=== PATIENT | male | born 1985 | race American Indian/Alaskan Native ===

== ENCOUNTER 2018-05-24 01:03 | Emergency (ER) | payer OTHER ==
[2018-05-24] MEDS ORDERED: TYLENOL PO ONE (01:35)
[2018-05-24] MEDS ORDERED: TYLENOL ONE (01:40)
--- NOTE | 2018-05-24 07:59 | Emergency Department Report ---
ED Back Pain/Injury HPI - General Chief Complaint: Back Pain/Injury Stated Complaint: BACK PAIN Time Seen by Provider: 05/24/18 07:52 Source: patient Limitations: No Limitations - History of Present Illness Initial Comments: Patient reported that he has back pain off and on 3 days. He states that he think he twisted his back while he was trying to pick something up. Denies any nausea or vomiting. Denies any urinary burning, frequency or urgency. Denies any fever or chills. Pain is 4/10 and aching. Denies any loss of bowel or bladder function. Denies any numbness or tingling to extremities. He said in 2013 he was told that he had a cyst on his kidney but patient is not heard and flank he is oriented in and is lower back at paraspinal area. Patient did not follow-up as recommended. Pain is worse with movement and better with rest. He denies taking any medication prior to coming to the emergency room MD Complaint: back pain, back injury Onset/Timin -: days(s) Similar Symptoms Previously: No Place: street Radiation: none Severity: mild Severity scale (0 -10): 4 Quality: aching Consistency: intermittent Improves With: other (rest) Worsens With: movement Context: turning/twisting Associated Symptoms: denies: confusion, weakness, chest pain, numbness, difficulty walking, cough, difficulty urinating, diaphoresis, incontinence, fever/chills, constipation, headaches, abdominal pain, loss of appetite, malaise, nausea/vomiting, rash, seizure, shortness of breath, syncope Treatments Prior to Arrival: other (none) - Related Data Previous Rx's Medication Instructions Recorded Last Taken Type Sulfamethoxazole/Trimethoprim 1 each PO Q12H #30 tablet 06/24/13 Unknown Rx [Bactrim DS TAB] Cyclobenzaprine [Flexeril 10 MG 10 mg PO Q8H PRN #12 tablet 05/24/18 Unknown Rx TAB] traMADol [Ultram 50 MG tab] 50 mg PO Q6HR PRN #12 tablet 05/24/18 Unknown Rx Allergies Allergy/AdvReac Type Severity Reaction Status Date / Time No Known Allergies Allergy Unverified 05/13/13 10:37 ED Review of Systems ROS: Stated complaint: BACK PAIN Other details as noted in HPI Constitutional: denies: chills, fever ENT: denies: throat pain, congestion Respiratory: denies: cough, shortness of breath, wheezing Cardiovascular: denies: chest pain, palpitations, edema, syncope Gastrointestinal: denies: abdominal pain, nausea, vomiting, constipation, hematemesis Genitourinary: denies: urgency, dysuria, frequency, hematuria, discharge, testicular pain, testicular mass Musculoskeletal: back pain. denies: joint swelling, arthralgia, myalgia Skin: denies: rash Neurological: denies: headache, weakness, numbness, paresthesias, abnormal gait, vertigo ED Past Medical Hx - Past Medical History Previous Medical History?: Yes Hx Kidney Stones: Yes ("cyst on kidney") - Surgical History Past Surgical History?: No - Family History Family history: no significant - Social History Smoking Status: Current Every Day Smoker Substance Use Type: None - Medications Home Medications: Home Medications Medication Instructions Recorded Confirmed Last Taken Type Sulfamethoxazole/Trimethoprim 1 each PO Q12H #30 tablet 06/24/13 Unknown Rx [Bactrim DS TAB] Cyclobenzaprine [Flexeril 10 MG 10 mg PO Q8H PRN #12 tablet 05/24/18 Unknown Rx TAB] traMADol [Ultram 50 MG tab] 50 mg PO Q6HR PRN #12 tablet 05/24/18 Unknown Rx ED Physical Exam - General Limitations: No Limitations General appearance: alert, in no apparent distress - Head Head exam: Present: atraumatic, normocephalic - Eye Eye exam: Present: normal appearance, PERRL, EOMI Pupils: Present: normal accommodation - ENT ENT exam: Present: normal exam, normal orophraynx, mucous membranes moist, TM's normal bilaterally, normal external ear exam - Neck Neck exam: Present: normal inspection, full ROM, other (no C-spine tenderness). Absent: tenderness, lymphadenopathy - Respiratory Respiratory exam: Present: normal lung sounds bilaterally. Absent: respiratory distress, chest wall tenderness - Cardiovascular Cardiovascular Exam: Present: regular rate, normal rhythm, normal heart sounds - GI/Abdominal GI/Abdominal exam: Present: soft, normal bowel sounds. Absent: distended, tenderness, guarding, rigid, organomegaly, mass ED Course Vital Signs 05/24/18 05/24/18 01:34 01:40 Temperature 97.9 F Pulse Rate 64 Respiratory 18 18 Rate Blood Pressure 123/73 O2 Sat by Pulse 97 Oximetry - Reevaluation(s) Reevaluation #1: 05/24/18 08:20 Review of chart shows the patient has a history of nephrocalcinosis which was found on CT scan of the abdomen and pelvis and April 2013. He had previous scan in 2011 which showed that there were no change. Patient and to receive Toradol and Decadron and urinalysis sent. I spoke to him regarding plans that he voiced understanding. He is stable presently in no acute distress 05/24/18 08:21 Reevaluation #2: 05/24/18 09:15 Patient tolerated fluid well in the emergency room and pain is better. ED Medical Decision Making - Lab Data Lab Results 05/24/18 Range/Units 08:29 Urine Color Yellow (Yellow) Urine Turbidity Clear (Clear) Urine pH 5.0 (5.0-7.0) Ur Specific [place] 1.034 H (1.003-1.030) Urine Protein 30 mg/dl (Negative) mg/dL Urine Glucose (UA) Neg (Negative) mg/dL Urine Ketones 20 (Negative) mg/dL Urine Blood Neg (Negative) Urine Nitrite Neg (Negative) Urine Bilirubin Neg (Negative) Urine Urobilinogen 2.0 (<2.0) mg/dL Ur Leukocyte Esterase Neg (Negative) Urine WBC (Auto) 5.0 (0.0-6.0) /HPF Urine RBC (Auto) 3.0 (0.0-6.0) /HPF U Epithel Cells (Auto) 1.0 (0-13.0) /HPF Urine Mucus 3+ /HPF - Medical Decision Making This is a 33-year-old male here for bilateral lower back pain that he has had before and said that he ranges his back. Patient has a history of renal calcinosis and urinalysis was then which shows dehydration otherwise stable. I discussed this with patient and I told him that he will need to follow-up with professor of marketing for further evaluation. He voiced understanding. Patient has no blood in his urine. He was given premedication emergency room and he said he feels better and discharged home in stable condition with prescription for Flexeril and Ultram. Report reviewed and CT scan of the abdomen and pelvis from 2013 and 2011 shows renal calcinosis without any changes Critical care attestation.: If time is entered above; I have spent that time in minutes in the direct care of this critically ill patient, excluding procedure time. ED Disposition Clinical Impression: Acute exacerbation of chronic low back pain, Renal calcinosis, Mild dehydration Disposition: DC-01 TO HOME OR SELFCARE Is pt being admited?: No Does the pt Need Aspirin: No Condition: Stable Instructions: Back Pain (ED), Dehydration (ED) Additional Instructions: Please follow up in the pathologist as instructed regarding and calcium deposits any kidney which is diagnosed in 2011 and 2013. Follow-up in 2 days Urinalysis is stable except you have mild dehydration and he needs to increase your fluid intake to at least 2-3 L of fluid daily. Take Flexeril and Ultram for back pain please do not drive or operate heavy machinery while taking this medication as it causes drowsiness C referral to primary care physician. Prescriptions: Cyclobenzaprine [Flexeril 10 MG TAB] 10 mg PO Q8H PRN #12 tablet PRN Reason: Muscle Spasm traMADol [Ultram 50 MG tab] 50 mg PO Q6HR PRN #12 tablet PRN Reason: Pain Referrals: LOWELL MIMS MD [Staff Physician] - 2-3 Days [facility] [Outside] - 2-3 Days Forms: Work/School Release Form(ED)
[2018-05-24] MEDS ORDERED: DECADRON IM STA (08:00)
[2018-05-24] MEDS ORDERED: TORADOL IM ONE (08:00)
[2018-05-24 08:48] LABS: Bilirubin,Urine NEG (Negative); Blood,Urine NEG (Negative); Color,Urine Yellow (Yellow); Mucus,Urine 3+ /HPF
[2018-05-24 09:35] VITALS: BP 125/75
== END 2018-05-24 09:35 | disposition home or self-care (01) ==
LOC: ED 01:03
DX: E83.59 Other disorders of calcium metabolism (principal); E86.0 Dehydration; G89.29 Other chronic pain; M54.5 Low back pain; F17.200 Nicotine dependence, unspecified, uncomplicated
CPT/HCPCS: 81001; 96372; 99283; J1100; J1885

== ENCOUNTER 2018-05-24 22:52 | Emergency (ER) | payer OTHER ==
--- NOTE | 2018-05-25 07:23 | Emergency Department Report ---
ED Recheck HPI - General Chief Complaint: Medical Clearance Stated Complaint: MEDICAL CLEARANCE Time Seen by Provider: 05/25/18 07:06 Source: patient Mode of arrival: Ambulatory Limitations: No Limitations - History of Present Illness MD Complaint: medication refill request -: Sudden Returns Today for: other - Related Data Previous Rx's Medication Instructions Recorded Last Taken Type Cyclobenzaprine [Flexeril 10 MG 10 mg PO Q8H PRN #12 tablet 05/24/18 Unknown Rx TAB] traMADol [Ultram 50 MG tab] 50 mg PO Q6HR PRN #12 tablet 05/24/18 Unknown Rx Sulfamethoxazole/Trimethoprim 1 each PO BID #10 tablet 05/25/18 Unknown Rx [Bactrim DS TAB] Allergies Allergy/AdvReac Type Severity Reaction Status Date / Time No Known Allergies Allergy Unverified 05/13/13 10:37 ED Review of Systems ROS: Stated complaint: MEDICAL CLEARANCE Other details as noted in HPI Comment: All other systems reviewed and negative Constitutional: denies: chills, fever Eyes: denies: eye pain ENT: denies: ear pain Respiratory: denies: orthopnea Cardiovascular: denies: dyspnea on exertion Endocrine: denies: intolerance to cold Gastrointestinal: denies: abdominal pain Genitourinary: denies: urgency, dysuria, frequency, hematuria, discharge, testicular pain, testicular mass Musculoskeletal: as per HPI, back pain Skin: denies: rash Neurological: denies: headache Psychiatric: denies: depression Hematological/Lymphatic: denies: easy bleeding ED Past Medical Hx - Past Medical History Previous Medical History?: Yes Hx Kidney Stones: Yes ("cyst on kidney") - Surgical History Past Surgical History?: No - Family History Family history: no significant - Social History Smoking Status: Former Smoker Substance Use Type: None - Medications Home Medications: Home Medications Medication Instructions Recorded Confirmed Last Taken Type Cyclobenzaprine [Flexeril 10 MG 10 mg PO Q8H PRN #12 tablet 05/24/18 Unknown Rx TAB] traMADol [Ultram 50 MG tab] 50 mg PO Q6HR PRN #12 tablet 05/24/18 Unknown Rx Sulfamethoxazole/Trimethoprim 1 each PO BID #10 tablet 05/25/18 Unknown Rx [Bactrim DS TAB] ED Physical Exam - General Limitations: No Limitations General appearance: alert - Head Head exam: Present: atraumatic - Eye Eye exam: Present: normal appearance, PERRL Pupils: Present: normal accommodation - ENT ENT exam: Present: normal exam - Neck Neck exam: Present: normal inspection - Respiratory Respiratory exam: Present: normal lung sounds bilaterally - Cardiovascular Cardiovascular Exam: Present: regular rate - GI/Abdominal GI/Abdominal exam: Present: soft, normal bowel sounds - Rectal Rectal exam: Present: deferred - Extremities Exam Extremities exam: Present: normal inspection, full ROM - Back Exam Back exam: Present: normal inspection, full ROM - Neurological Exam Neurological exam: Present: alert, oriented X3 - Psychiatric Psychiatric exam: Present: normal affect, normal mood - Skin Skin exam: Present: warm, dry, intact ED Course Vital Signs 05/24/18 23:11 Temperature 98.1 F Pulse Rate 88 Respiratory 18 Rate Blood Pressure 135/93 O2 Sat by Pulse 99 Oximetry ED Recheck MDM - Core Measures Measure Exclusions: not indicated - Medical Decision Making HERE YESTERDAY SEEN BY REMOTE SENSING SCIENTIST Tonny WHO GAVE HIM TRAMADOL AND FLEXERIL ON DC. She states that the last time he had these symptoms the only thing that helped was an antibiotic. Upon further review of the chart patient once was giving Bactrim. He shouldn't urine was noted to be without leuks/nitrates or blood. However, given his back pain consistent with his prior urinary tract infections will treat him with Bactrim and he will follow-up with the urologist. Critical care attestation.: If time is entered above; I have spent that time in minutes in the direct care of this critically ill patient, excluding procedure time. ED Disposition Clinical Impression: Dysuria Disposition: DC-01 TO HOME OR SELFCARE Is pt being admited?: No Does the pt Need Aspirin: No Condition: Stable Additional Instructions: follow up as instructed yesterday for your kidney see the pcp - name below drink a lot of water to stay hydrated do not take tramadol or flexeril while operating heavy machinery Prescriptions: Sulfamethoxazole/Trimethoprim [Bactrim DS TAB] 1 each PO BID #10 tablet Referrals: PRIMARY CARE, [Primary Care Provider] - 3-5 Days [facility] [Outside] - 3-5 Days Time of Disposition: 07:31
== END 2018-05-25 07:37 | disposition home or self-care (01) ==
LOC: ED 22:52
CPT/HCPCS: 99282

== ENCOUNTER 2018-05-26 18:52 | Emergency (ER) | payer OTHER ==
--- NOTE | 2018-05-26 19:30 | Emergency Department Report ---
Chief Complaint: Nausea/Vomiting/Diarrhea Stated Complaint: DIARRHEA EXTREME Time Seen by Provider: 05/26/18 19:25 - HPI History of Present Illness: Pt c/o diarrhea that began three days ago (+) nausea pt states as soon as he takes in food he has diarrhea no abdominal pain, no fever, no blood in the stool denies any new foods, no camping, no well water PMHx has not tried anything for the diarrhea pt states the diarrhea started once he started taking bactrim three days ago VSS MSE complete MSE screening note: Focused history and physical exam performed. Due to findings the following was ordered: ua, cbc, bmp ED Disposition for MSE Condition: Stable
[2018-05-26 19:31] VITALS: BP 128/85
[2018-05-26 20:12] LABS: Bilirubin,Urine NEG (Negative); Blood,Urine NEG (Negative); Color,Urine Yellow (Yellow); Mucus,Urine FEW /HPF; Protein,Urine <15 mg/dL mg/dL (Negative); Urobilinogen,Urine < 2.0 mg/dL (<2.0)
[2018-05-26 20:45] LABS: BUN/Creatinine Ratio 24; Blood Urea Nitrogen 17 mg/dL (9-20); Calcium 8.9 mg/dL (8.4-10.2); Hemolysis Index 8
[2018-05-26 20:49] LABS: Basophils # (Auto) 0.1 K/mm3 (0.0-0.1); Basophils % (Auto) 0.8 % (0.0-1.8); Eosinophils # (Auto) 0.1 K/mm3 (0.0-0.4); Eosinophils % (Auto) 0.8 % (0.0-4.3); Hematocrit 38.7 % (35.5-45.6); Hemoglobin 13.2 gm/dl (11.8-15.2); Lymphocytes % (Auto) 31.3 % (13.4-35.0); Mean Corpuscular HGB Conc 34 % (32-34); Mean Corpuscular Volume 88 fl (84-94); Monocytes # (Auto) 0.5 K/mm3 (0.0-0.8); Monocytes % (Auto) 7.3 % (0.0-7.3); Platelet Count 183 K/mm3 (140-440); Red Blood Count 4.43 M/mm3 (3.65-5.03); Red Cell Distribution Width 13.5 % (13.2-15.2)
--- NOTE | 2018-05-26 21:47 | Emergency Department Report ---
ED Abdominal Pain HPI - General Chief Complaint: Nausea/Vomiting/Diarrhea Stated Complaint: DIARRHEA EXTREME Time Seen by Provider: 05/26/18 19:25 Source: patient Mode of arrival: Ambulatory Limitations: No Limitations - History of Present Illness MD Complaint: other -: days(s) (3) Location: diffuse Radiation: none Migration to: no migration Severity scale (0 -10): 0 Quality: dull Consistency: intermittent Improves With: nothing Worsens With: nothing Context: possible food poisoning (he denies any foreign travel preceding the pain and unsure full food is involved but has been having some diarrhea for the last 3 days that is not improving.) - Related Data Previous Rx's Medication Instructions Recorded Last Taken Type Cyclobenzaprine [Flexeril 10 MG 10 mg PO Q8H PRN #12 tablet 05/24/18 Unknown Rx TAB] traMADol [Ultram 50 MG tab] 50 mg PO Q6HR PRN #12 tablet 05/24/18 Unknown Rx Sulfamethoxazole/Trimethoprim 1 each PO BID #10 tablet 05/25/18 Unknown Rx [Bactrim DS TAB] Ciprofloxacin HCl [Cipro] 500 mg PO BID #10 tablet 05/26/18 Unknown Rx Hyoscyamine Subl [Levsin Sl 0.125 0.125 mg SL Q4HR PRN #20 tablet 05/26/18 Unknown Rx TAB] metroNIDAZOLE [Flagyl] 500 mg PO Q12HR #10 tab 05/26/18 Unknown Rx Allergies Allergy/AdvReac Type Severity Reaction Status Date / Time No Known Allergies Allergy Unverified 05/13/13 10:37 ED Review of Systems ROS: Stated complaint: DIARRHEA EXTREME Other details as noted in HPI Constitutional: denies: chills, fever Eyes: denies: eye pain, eye discharge, vision change ENT: denies: ear pain, throat pain Respiratory: denies: cough, shortness of breath, wheezing Cardiovascular: denies: chest pain, palpitations Endocrine: no symptoms reported Gastrointestinal: diarrhea. denies: abdominal pain, nausea, vomiting, hematemesis, melena Genitourinary: denies: urgency, dysuria Musculoskeletal: denies: back pain, joint swelling, arthralgia Skin: denies: rash, lesions Neurological: denies: headache, weakness, paresthesias Psychiatric: denies: anxiety, depression Hematological/Lymphatic: denies: easy bleeding, easy bruising ED Past Medical Hx - Past Medical History Hx Kidney Stones: Yes ("cyst on kidney") - Surgical History Past Surgical History?: No - Social History Smoking Status: Never Smoker Substance Use Type: None - Medications Home Medications: Home Medications Medication Instructions Recorded Confirmed Last Taken Type Cyclobenzaprine [Flexeril 10 MG 10 mg PO Q8H PRN #12 tablet 05/24/18 Unknown Rx TAB] traMADol [Ultram 50 MG tab] 50 mg PO Q6HR PRN #12 tablet 05/24/18 Unknown Rx Sulfamethoxazole/Trimethoprim 1 each PO BID #10 tablet 05/25/18 Unknown Rx [Bactrim DS TAB] Ciprofloxacin HCl [Cipro] 500 mg PO BID #10 tablet 05/26/18 Unknown Rx Hyoscyamine Subl [Levsin Sl 0.125 0.125 mg SL Q4HR PRN #20 tablet 05/26/18 Unknown Rx TAB] metroNIDAZOLE [Flagyl] 500 mg PO Q12HR #10 tab 05/26/18 Unknown Rx ED Physical Exam - General Limitations: No Limitations General appearance: alert, in no apparent distress - Head Head exam: Present: atraumatic, normocephalic - Eye Eye exam: Present: normal appearance, PERRL, EOMI Pupils: Present: normal accommodation - ENT ENT exam: Present: normal exam, mucous membranes moist - Neck Neck exam: Present: normal inspection - Respiratory Respiratory exam: Present: normal lung sounds bilaterally. Absent: respiratory distress - Cardiovascular Cardiovascular Exam: Present: regular rate, normal rhythm. Absent: systolic murmur, diastolic murmur, rubs, gallop - GI/Abdominal GI/Abdominal exam: Present: soft, normal bowel sounds. Absent: hyperactive bowel sounds, hypoactive bowel sounds, organomegaly, mass, pulsatile mass - Rectal Rectal exam: Present: deferred - Extremities Exam Extremities exam: Present: normal inspection - Back Exam Back exam: Present: normal inspection - Neurological Exam Neurological exam: Present: alert, oriented X3 - Psychiatric Psychiatric exam: Present: normal affect, normal mood - Skin Skin exam: Present: warm, dry, intact, normal color. Absent: rash ED Course Vital Signs 05/26/18 19:29 Temperature 98 F Pulse Rate 86 Respiratory 18 Rate Blood Pressure 128/85 O2 Sat by Pulse 100 Oximetry ED Medical Decision Making - Lab Data Result diagrams: 05/26/18 19:54 05/26/18 19:54 Critical care attestation.: If time is entered above; I have spent that time in minutes in the direct care of this critically ill patient, excluding procedure time. ED Disposition Clinical Impression: Diarrhea Disposition: - TO HOME OR SELFCARE Is pt being admited?: No Does the pt Need Aspirin: No Condition: Stable Instructions: Acute Nausea and Vomiting (ED), Gastroenteritis (ED) Prescriptions: Ciprofloxacin HCl [Cipro] 500 mg PO BID #10 tablet Hyoscyamine Subl [Levsin Sl 0.125 TAB] 0.125 mg SL Q4HR PRN #20 tablet PRN Reason: Spasms metroNIDAZOLE [Flagyl] 500 mg PO Q12HR #10 tab [facility] ELIS [Primary Care Provider] - 3-5 Days Forms: Work/School Release Form(ED)
== END 2018-05-26 21:05 | disposition home or self-care (01) ==
LOC: ED 18:52
DX: R19.7 Diarrhea, unspecified (principal); Z87.442 Personal history of urinary calculi
CPT/HCPCS: 36415; 80048; 81001; 85025

== ENCOUNTER 2018-06-02 21:38 | Emergency (ER) | payer OTHER ==
--- NOTE | 2018-06-02 21:48 | Emergency Department Report ---
Blank Doc - Documentation Documentation: This is a 33-year-old male that presents with syncopal episode and URI symptoms. Febrile in triage and tachycardia. Code sepsis initiated. This initial assessment/diagnostic orders/clinical plan/treatment(s) is/are subject to change based on patient's health status, clinical progression and re- assessment by fellow clinical providers in the ED. Further treatment and workup at subsequent clinical providers discretion. Patient/guardians urged not to elope from the ED as their condition may be serious if not clinically assessed and managed. Initial orders include: 1- Patient sent to MAIN ED for further evaluation and treatment 2- EKG 3- labs 4- CXR 5- fluids
[2018-06-02] MEDS ORDERED: NACL 0.9% 1000 ML IV ONE (21:53)
[2018-06-02 22:07] LABS: Basophils % (Auto) 0.6 % (0.0-1.8); Eosinophils % (Auto) 0.1 % (0.0-4.3); Hematocrit 36.9 % (35.5-45.6); Lymphocytes # (Auto) 0.8 K/mm3 (1.2-5.4); Lymphocytes % (Auto) 13.8 % (13.4-35.0); Mean Corpuscular HGB Conc 35 % (32-34); Mean Corpuscular Volume 86 fl (84-94); Monocytes # (Auto) 0.8 K/mm3 (0.0-0.8); Platelet Count 193 K/mm3 (140-440); Red Blood Count 4.28 M/mm3 (3.65-5.03); Red Cell Distribution Width 13.6 % (13.2-15.2)
[2018-06-02 22:25] LABS: Alanine Aminotransferase 11 units/L (7-56); Albumin 4.5 g/dL (3.9-5); BUN/Creatinine Ratio 19; Blood Urea Nitrogen 15 mg/dL (9-20); Hemolysis Index 3
[2018-06-02] MEDS ORDERED: TYLENOL PO ONE (22:53)
[2018-06-02] MEDS ORDERED: TORADOL IVP ONE (22:53)
[2018-06-02] MEDS ORDERED: ZOFRAN IV ONE (22:53)
--- NOTE | 2018-06-02 23:14 | XRay Report ---
PROCEDURE: PORTABLE CHEST TECHNIQUE: A portable AP chest radiograph was obtained at 06/03/2018 2:32 WORKFORCE MANAGEMENT COORDINATOR. CPT 72040 HISTORY: Chest pain COMPARISONS: None. FINDINGS: Heart: Normal. Mediastinum/Vessels: Normal. Lungs/Pleural space: Normal. Bony thorax: No acute osseous abnormality. Life support devices: None. IMPRESSION: No acute cardiopulmonary abnormality. This document is electronically signed by Jonathan Johnson MD., June 02 2018 11:12:18 PM ET
--- NOTE | 2018-06-02 23:36 | Emergency Department Report ---
- General Chief Complaint: Syncope Stated Complaint: PASSED OUT @ WORK Time Seen by Provider: 06/02/18 21:46 Source: patient Mode of arrival: Ambulatory Limitations: No Limitations - History of Present Illness Initial Comments: 33 yo male with no significant past medical history presents to the hospital after syncopal episode at work. For the past 3 days he has been having body aches, chills, nonproductive cough, and subjective fever. Today patient developed vomiting 3 episodes with decreased appetite. While standing at work he felt lightheaded while standing and passed out. He denies any headache, chest pain, shortness of breath, abdominal pain, melena, hematochezia, or dysuria. He denies sick contacts, recent travel, did not receive a flu shot. PMD: None - Related Data Previous Rx's Medication Instructions Recorded Last Taken Type Cyclobenzaprine [Flexeril 10 MG 10 mg PO Q8H PRN #12 tablet 05/24/18 Unknown Rx TAB] traMADol [Ultram 50 MG tab] 50 mg PO Q6HR PRN #12 tablet 05/24/18 Unknown Rx Sulfamethoxazole/Trimethoprim 1 each PO BID #10 tablet 05/25/18 Unknown Rx [Bactrim DS TAB] Ciprofloxacin HCl [Cipro] 500 mg PO BID #10 tablet 05/26/18 Unknown Rx Hyoscyamine Subl [Levsin Sl 0.125 0.125 mg SL Q4HR PRN #20 tablet 05/26/18 Unknown Rx TAB] metroNIDAZOLE [Flagyl] 500 mg PO Q12HR #10 tab 05/26/18 Unknown Rx Acetaminophen [Tylenol Extra 500 mg PO Q4HR PRN #20 tablet 06/03/18 Unknown Rx Strength] Ibuprofen [Motrin] 800 mg PO Q8HR PRN #30 tablet 06/03/18 Unknown Rx Ondansetron [Zofran Odt] 4 mg PO Q8HR PRN #20 tab.rapdis 06/03/18 Unknown Rx Pseudoephedrine ER [Sudafed 12 Hr] 120 mg PO BID PRN #20 tablet.er 06/03/18 Unknown Rx guaiFENesin/DEXTROMETHORPHAN 1 each PO BID PRN #20 tab.er.12h 06/03/18 Unknown Rx [Mucinex DM ER 600-30 mg TAB] Allergies Allergy/AdvReac Type Severity Reaction Status Date / Time No Known Allergies Allergy Verified 06/02/18 21:41 ED Review of Systems ROS: Stated complaint: PASSED OUT @ WORK Other details as noted in HPI Comment: All other systems reviewed and negative ED Past Medical Hx - Past Medical History Hx Kidney Stones: Yes ("cyst on kidney") - Social History Smoking Status: Never Smoker Substance Use Type: None - Medications Home Medications: Home Medications Medication Instructions Recorded Confirmed Last Taken Type Cyclobenzaprine [Flexeril 10 MG 10 mg PO Q8H PRN #12 tablet 05/24/18 Unknown Rx TAB] traMADol [Ultram 50 MG tab] 50 mg PO Q6HR PRN #12 tablet 05/24/18 Unknown Rx Sulfamethoxazole/Trimethoprim 1 each PO BID #10 tablet 05/25/18 Unknown Rx [Bactrim DS TAB] Ciprofloxacin HCl [Cipro] 500 mg PO BID #10 tablet 05/26/18 Unknown Rx Hyoscyamine Subl [Levsin Sl 0.125 0.125 mg SL Q4HR PRN #20 tablet 05/26/18 Unknown Rx TAB] metroNIDAZOLE [Flagyl] 500 mg PO Q12HR #10 tab 05/26/18 Unknown Rx Acetaminophen [Tylenol Extra 500 mg PO Q4HR PRN #20 tablet 06/03/18 Unknown Rx Strength] Ibuprofen [Motrin] 800 mg PO Q8HR PRN #30 tablet 06/03/18 Unknown Rx Ondansetron [Zofran Odt] 4 mg PO Q8HR PRN #20 tab.rapdis 06/03/18 Unknown Rx Pseudoephedrine ER [Sudafed 12 Hr] 120 mg PO BID PRN #20 tablet.er 06/03/18 Unknown Rx guaiFENesin/DEXTROMETHORPHAN 1 each PO BID PRN #20 tab.er.12h 06/03/18 Unknown Rx [Mucinex DM ER 600-30 mg TAB] ED Physical Exam - General Limitations: No Limitations - Other Other exam information: General: No limitations, patient is alert in no acute distress Head exam: Atraumatic, normocephalic Eyes exam: Normal appearance, pupils equal reactive to light, extraocular movements intact ENT: Moist mucous membrane, normal oropharynx without exudate Neck exam: Normal inspection, full range of motion, no meningismus nontender Respiratory exam: Clear to auscultation bilateral, no wheezes, rales, crackles Cardiovascular: Normal rate and rhythm, normal heart sounds Abdomen: Soft, nondistended, and nontender, with normal bowel sounds, no rebound, or guarding Extremity: Full range of motion normal inspection no deformity Back: Normal Inspection, full range of motion, no tenderness Neurologic: Alert, oriented x3, cranial nerves intact, no motor or sensory deficit Psychiatric: normal affect, normal mood Skin: Warm, dry, intact ED Course Vital Signs 06/02/18 06/02/18 06/02/18 21:51 23:37 23:38 Temperature 101.7 F H 99.6 F Pulse Rate 101 H 98 H Respiratory 20 16 16 Rate Blood Pressure 128/70 Blood Pressure 123/59 [Left] O2 Sat by Pulse 99 100 Oximetry 06/02/18 06/03/18 23:55 01:22 Temperature 98.4 F Pulse Rate 85 Respiratory 16 16 Rate Blood Pressure Blood Pressure 109/62 [Left] O2 Sat by Pulse 98 97 Oximetry ED Medical Decision Making - Lab Data Result diagrams: 06/02/18 21:58 06/02/18 21:58 Lab Results 06/02/18 06/02/18 06/02/18 Range/Units 21:58 21:58 21:58 WBC 5.9 (4.5-11.0) K/mm3 RBC 4.28 (3.65-5.03) M/mm3 Hgb 13.0 (11.8-15.2) gm/dl Hct 36.9 (35.5-45.6) % MCV 86 (84-94) fl MCH 30 (28-32) pg MCHC 35 H (32-34) % RDW 13.6 (13.2-15.2) % Plt Count 193 (140-440) K/mm3 Lymph % (Auto) 13.8 (13.4-35.0) % [place] % (Auto) 13.0 H (0.0-7.3) % Eos % (Auto) 0.1 (0.0-4.3) % Baso % (Auto) 0.6 (0.0-1.8) % Lymph # 0.8 L (1.2-5.4) K/mm3 [place] # 0.8 (0.0-0.8) K/mm3 Eos # 0.0 (0.0-0.4) K/mm3 Baso # 0.0 (0.0-0.1) K/mm3 Seg Neutrophils % 72.5 H (40.0-70.0) % Seg Neutrophils # 4.3 (1.8-7.7) K/mm3 Sodium 139 (137-145) mmol/L Potassium 4.1 (3.6-5.0) mmol/L Chloride 101.3 (98-107) mmol/L Carbon Dioxide 27 (22-30) mmol/L Anion Gap 15 mmol/L BUN 15 (9-20) mg/dL Creatinine 0.8 (0.8-1.5) mg/dL Estimated GFR > 60 ml/min BUN/Creatinine Ratio 19 % Glucose 117 H (75-100) mg/dL Lactic Acid 0.70 (0.7-2.0) mmol/L Calcium 9.0 (8.4-10.2) mg/dL Total Bilirubin 0.20 (0.1-1.2) mg/dL AST 14 (5-40) units/L ALT 11 (7-56) units/L Alkaline Phosphatase 44 (35-129) units/L Total Protein 7.4 (6.3-8.2) g/dL Albumin 4.5 (3.9-5) g/dL Albumin/Globulin Ratio 1.6 % Urine Color (Yellow) Urine Turbidity (Clear) Urine pH (5.0-7.0) Ur Specific [place] (1.003-1.030) Urine Protein (Negative) mg/dL Urine Glucose (UA) (Negative) mg/dL Urine Ketones (Negative) mg/dL Urine Blood (Negative) Urine Nitrite (Negative) Urine Bilirubin (Negative) Urine Urobilinogen (<2.0) mg/dL Ur Leukocyte Esterase (Negative) Urine WBC (Auto) (0.0-6.0) /HPF Urine RBC (Auto) (0.0-6.0) /HPF U Epithel Cells (Auto) (0-13.0) /HPF Urine Mucus /HPF Influenza A (Rapid) (Negative) Influenza B (Rapid) (Negative) Group A Strep Rapid (Negative) 06/02/18 06/02/18 06/03/18 Range/Units 23:40 23:40 01:00 WBC (4.5-11.0) K/mm3 RBC (3.65-5.03) M/mm3 Hgb (11.8-15.2) gm/dl Hct (35.5-45.6) % MCV (84-94) fl MCH (28-32) pg MCHC (32-34) % RDW (13.2-15.2) % Plt Count (140-440) K/mm3 Lymph % (Auto) (13.4-35.0) % [place] % (Auto) (0.0-7.3) % Eos % (Auto) (0.0-4.3) % Baso % (Auto) (0.0-1.8) % Lymph # (1.2-5.4) K/mm3 [place] # (0.0-0.8) K/mm3 Eos # (0.0-0.4) K/mm3 Baso # (0.0-0.1) K/mm3 Seg Neutrophils % (40.0-70.0) % Seg Neutrophils # (1.8-7.7) K/mm3 Sodium (137-145) mmol/L Potassium (3.6-5.0) mmol/L Chloride (98-107) mmol/L Carbon Dioxide (22-30) mmol/L Anion Gap mmol/L BUN (9-20) mg/dL Creatinine (0.8-1.5) mg/dL Estimated GFR ml/min BUN/Creatinine Ratio % Glucose (75-100) mg/dL Lactic Acid (0.7-2.0) mmol/L Calcium (8.4-10.2) mg/dL Total Bilirubin (0.1-1.2) mg/dL AST (5-40) units/L ALT (7-56) units/L Alkaline Phosphatase (35-129) units/L Total Protein (6.3-8.2) g/dL Albumin (3.9-5) g/dL Albumin/Globulin Ratio % Urine Color Yellow (Yellow) Urine Turbidity Slightly hazy (Clear) Urine pH 5.0 (5.0-7.0) Ur Specific [place] 1.032 H (1.003-1.030) Urine Protein <15 mg/dl (Negative) mg/dL Urine Glucose (UA) Neg (Negative) mg/dL Urine Ketones Neg (Negative) mg/dL Urine Blood Neg (Negative) Urine Nitrite Neg (Negative) Urine Bilirubin Neg (Negative) Urine Urobilinogen < 2.0 (<2.0) mg/dL Ur Leukocyte Esterase Neg (Negative) Urine WBC (Auto) 2.0 (0.0-6.0) /HPF Urine RBC (Auto) 6.0 (0.0-6.0) /HPF U Epithel Cells (Auto) 1.0 (0-13.0) /HPF Urine Mucus 3+ /HPF Influenza A (Rapid) Negative (Negative) Influenza B (Rapid) Negative (Negative) Group A Strep Rapid Negative (Negative) - EKG Data -: EKG Interpreted by Ct EKG shows normal: sinus rhythm, axis (qrs 59), QRS complexes (qrsd 114), ST-T waves (no stemi/t inv) Rate: normal (92) - Radiology Data Radiology results: report reviewed PROCEDURE: PORTABLE CHEST TECHNIQUE: A portable AP chest radiograph was obtained at 06/03/2018 2:32 [employer]. CPT 78896 HISTORY: Chest pain COMPARISONS: None. FINDINGS: Heart: Normal. Mediastinum/Vessels: Normal. Lungs/Pleural space: Normal. Bony thorax: No acute osseous abnormality. Life support devices: None. IMPRESSION: No acute cardiopulmonary abnormality. - Medical Decision Making Patient's ED workup is unremarkable. We treated symptomatically for viral syndrome since strep and flu are negative. Symptoms improved ED treatment. Syncope likely related to dehydration. He took several liters of fluid for patient to urinate and it still had a high specific gravity. - Differential Diagnosis sepsis, viral syndrome, influenza, pneumonia, anemia, dehydration Critical Care Time: No Critical care attestation.: If time is entered above; I have spent that time in minutes in the direct care of this critically ill patient, excluding procedure time. ED Disposition Clinical Impression: Viral syndrome, Dehydration, Vomiting, Syncope Disposition: DC-01 TO HOME OR SELFCARE Is pt being admited?: No Does the pt Need Aspirin: No Condition: Stable Instructions: Viral Syndrome (ED), Syncope (ED), Dehydration (ED) Additional Instructions: Take the medication as prescribed. Follow up with your doctor or the cl inic/doctor provided. Return if symptoms worsen as indicated by your discharge instructions Prescriptions: Ibuprofen [Motrin] 800 mg PO Q8HR PRN #30 tablet PRN Reason: Pain , Severe (7-10) guaiFENesin/DEXTROMETHORPHAN [Mucinex DM ER 600-30 mg TAB] 1 each PO BID PRN #20 tab.er.12h PRN Reason: Cough Pseudoephedrine ER [Sudafed 12 Hr] 120 mg PO BID PRN #20 tablet.er PRN Reason: Nasal Congestion Acetaminophen [Tylenol Extra Strength] 500 mg PO Q4HR PRN #20 tablet PRN Reason: Fever >101 Ondansetron [Zofran Odt] 4 mg PO Q8HR PRN #20 tab.rapdis PRN Reason: Nausea And Vomiting Referrals: SERGIO RICE MD [Primary Care Provider] - 3-5 Days Forms: Work/School Release Form(ED) Time of Disposition: 03:30
[2018-06-03 01:21] LABS: Bilirubin,Urine NEG (Negative); Blood,Urine NEG (Negative); Color,Urine Yellow (Yellow); Mucus,Urine 3+ /HPF; Protein,Urine <15 mg/dL mg/dL (Negative); Urobilinogen,Urine < 2.0 mg/dL (<2.0)
[2018-06-03] MEDS ORDERED: SUDAFED 12 HR PO ONE (02:46)
[2018-06-03 04:22] VITALS: BP 108/61
== END 2018-06-03 04:56 | disposition home or self-care (01) ==
LOC: ED 21:38
DX: B34.9 Viral infection, unspecified (principal); E86.0 Dehydration; R55 Syncope and collapse
CPT/HCPCS: 36415; 71045; 80053; 81001; 82140; 85025; 87040; 87086; 87116; 87400; 87430; 93005; 93010; 96361; 96374; 96375; 99284; J1885; J2405; J7030